=== PATIENT | female | born 1955 | race African-American/Black ===

== ENCOUNTER 2021-03-29 14:25 | Emergency (ER) | payer OTHER ==
[~2021-03-29] VITALS: Ht 177.8 cm; Wt 83.0 kg
[~2021-03-29 14:25] MED LIST: ALDACTONE50 MG PO; AUGMENTIN 875-1 EACH PO; CORICIDIN COLD1 EACH PO; FLONASE 0.05%50 MCG NASAL
[2021-03-29] MEDS ORDERED: NAPROSYN500 MG PO (17:25)
[2021-03-29 17:47] VITALS: BP 164/103
== END 2021-03-29 17:47 | disposition home or self-care (01) ==
LOC: ER 14:25
DX: M25.461 Effusion, right knee (principal); M70.51 Other bursitis of knee, right knee; Z98.890 Other specified postprocedural states; Z79.899 Other long term (current) drug therapy; Z88.6 Allergy status to analgesic agent; Z91.040 Latex allergy status; Z88.5 Allergy status to narcotic agent; Y93.89 Activity, other specified